=== PATIENT | female | born 1940 | race Caucasian/White ===

== ENCOUNTER → 2017-01-04 | Outpatient (CLI) | payer MEDICARE ==
[~2017-01-04] MED LIST: AMLODIPINE BESYL5 MG PO; COUMADIN5 M2 PO; GEMFIBROZIL600 MG PO; LEVOTHYROXINE0.05 MG PO; LOPID600 M1 PO; MACROBID100 M1 PO; METOPROLOL SUC100 M1 PO; TENORMIN50 MG PO; ZOCOR20 MG PO; Zestril,Prinivi40 MG PO
[2017-01-04 10:58] LABS: BILIRUBIN NEGATIVE (NEGATIVE); BLOOD NEGATIVE (NEGATIVE); CLARITY CLEAR (CLEAR); COLOR YELLOW (YELLOW); GLUCOSE NEGATIVE (NEGATIVE); KETONE NEGATIVE (NEGATIVE); LEUKO ESTERASE TRACE (NEGATIVE); NITRITE NEGATIVE (NEGATIVE); PROTEIN NEGATIVE (NEGATIVE); SPECIFIC GRAVITY 1.015 (1.005-1.030); UROBILINOGEN 0.2 E.U./dl (0.2-1.0)
[2017-01-04 11:12] LABS: BASO # 0.1 10*3/uL (0.0-0.1); BASO % 0.7 % (0.0-1.0); EOS # 0.2 10*3/uL (0.0-0.4); EOS % 3.1 % (1.0-4.0); HEMATOCRIT 40.7 % (37.0-47.0); HEMOGLOBIN 13.8 g/dl (12.0-16.0); LYMPH # 1.5 10*3/uL (1.3-4.4); LYMPH % 20.9 % (27.0-41.0); MEAN CELL VOLUME 92.5 fl (81.0-99.0); MEAN CORPUSCULAR HGB 31.4 pg (27.0-31.0); MEAN CORPUSCULAR HGB CONC 33.9 g/dl (33.0-37.0); MEAN PLATELET VOLUME 9.5 fl (9.6-12.3); MONO # 0.5 10*3/uL (0.1-1.0); MONO % 7.4 % (3.0-9.0); NEUT # 4.9 10*3/uL (2.3-7.9); NEUT % 67.5 % (47.0-73.0); PLATELET COUNT AUTOMATED 258 10*3/uL (130-400); RED CELL DISTRI WIDTH 13.1 % (0-14.5); WHITE BLOOD COUNT 7.2 10*3/uL (4.8-10.8)
[2017-01-04 11:27] LABS: ALBUMIN 3.5 gm/dl (3.1-4.5); ALKALINE PHOSPHATASE 104 U/L (45-117); BILIRUBIN, TOTAL 0.5 mg/dl (0.2-1.0); BUN 15 mg/dl (7-24); CARBON DIOXIDE 31 mmol/L (21-32); CHLORIDE 102 mmol/L (98-107); CHOLESTEROL 206 mg/dL (<200); CPK 55 U/L (26-192); EST GLOM FILT AFRICAN AMERICAN > 60 ml/min; GLUCOSE 113 mg/dL (65-99); HDL CHOLESTEROL 55 mg/dl (40-60); LDL CHOLESTEROL 116 mg/dL (9-159); POTASSIUM 4.6 mmol/L (3.5-5.1); SGOT/AST 19 IU/L (3-35); SGPT/ALT 22 U/L (12-78); SODIUM 141 mmol/L (136-145); T3 UPTAKE 37 % (31-39); THYROXINE (T4) TOTAL 8.8 ug/dl (4.8-13.9); TOTAL PROTEIN 7.5 gm/dL (6.4-8.2); TRIGLYCERIDES 176 mg/dl (<150); VLDL CHOLESTEROL 35 mg/dL (6-40)
[2017-01-04 11:32] LABS: BACTERIA TRACE; EPITHELIAL CELLS 0-2
[2017-01-04 12:20] LABS: VITAMIN D, 25-HYDROXY 34.6 ng/mL (30-100)
== END ==
LOC: LAB 10:36
PROVIDERS: Family Medicine
DX: E78.5 Hyperlipidemia, unspecified (principal); E55.9 Vitamin D deficiency, unspecified; D64.9 Anemia, unspecified; R53.83 Other fatigue; R79.89 Other specified abnormal findings of blood chemistry; R74.8 Abnormal levels of other serum enzymes

== ENCOUNTER → 2019-03-29 | Outpatient (CLI) | payer MEDICARE ==
--- NOTE | ~2019-03-29 | PF ---
[place], [place] PULMONARY FUNCTION TEST [id number] UN[facility] #: [id number] ROOM: DOCTOR: CORNELIO RAMON MD,CHRIS BIRTHDATE: [birth year] DOS: 03/29/2019 ORDERED BY: Dr. Johnston. HISTORY: The recorded as 78-year-old female, height of 63 inches, weight 190 pounds, BMI 33.7 with assessment diagnosis for shortness of breath. The patient was reported tobacco use as half a pack of cigarettes per day for 43 years. SPIROMETRY: The FVC of 2.32 liters, 91% predicted value. The FEV1 is 1.55 liters, 80% predicted value. Ratio of FEV1/FVC is 67%. Partial improvement noted in postbronchodilator testing, but not significant improvement post-bronchodilators based on the ATS criteria. Flow volume loop was assessed as well, suggestive of mild obstructive airway pattern. LUNG VOLUME: Thoracic gas volume recorded 94%, residual volume 104%, and total lung capacity of 98%. The patient's airway resistance, passive conductance noted with moderate abnormality with improvement and resolution noted with post-bronchodilator test. FINAL IMPRESSION: Current test was suggestive of diagnosis of chronic obstructive pulmonary disease and bronchial asthma would be considered, mild at this time with clinical correlation advised. CHRIS GRIMES MD CM:PFREPORT:PULMONARY FUNCTION TEST [id number] CHRIS RAMON MD
== END | disposition home or self-care (01) ==
LOC: CP 10:43
DX: R06.09 Other forms of dyspnea (principal); I10 Essential (primary) hypertension; I48.91 Unspecified atrial fibrillation

== ENCOUNTER → 2019-04-04 | Outpatient (CLI) | payer MEDICARE | END | disposition home or self-care (01) | LOC: CARD 09:19 | DX: I34.0 Nonrheumatic mitral (valve) insufficiency (principal); R06.09 Other forms of dyspnea ==

== ENCOUNTER 2019-05-24 15:27 | Inpatient (IN) | payer MEDICARE ==
[~2019-05-24] VITALS: Ht 160 cm; Wt 85.8 kg
--- NOTE | ~2019-05-24 | EKG ---
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
--- NOTE | ~2019-05-24 | PR ---
[place], [place] PROGRESS NOTE NAME: MIGUE TILLMAN UNIT #: [id number] ROOM: 507 DOCTOR: FEI MARTIN,MATTHIAS BIRTHDATE: [birth year] DOS: 05/27/2019 REASON FOR VISIT: Atrial fibrillation with rapid ventricular rate, and CHF. HISTORY OF PRESENT ILLNESS: The patient is feeling better. Her heart rate is controlled. She is less short of breath and ambulating with minimal shortness of breath. No dizziness, no orthopnea, no PND. No nausea or vomiting. No fever and chills, no cough. REVIEW OF SYSTEMS: Review of 10 systems negative except as mentioned above. PHYSICAL EXAMINATION: VITAL SIGNS: Blood pressure 140/84, pulse 83, respiratory rate was 18, weight 85 kg, BMI 33. RHYTHM STRIPS: The patient was in atrial fibrillation with controlled ventricular rate. GENERAL: Alert, comfortable, in no acute distress. HEENT: Pupils are round and equal. No jaundice. NECK: Supple, no distended neck veins. No carotid bruit. CHEST: Symmetrical, nontender. LUNGS: Clear to auscultation bilaterally. HEART: Irregularly irregular, grade 1/6 systolic murmur. ABDOMEN: Benign, nontender. EXTREMITIES: No edema. Distal pulses palpable. SKIN: Warm and dry. No cyanosis, no clubbing. RECTAL: Deferred. GENITOURINARY: Deferred. NEUROLOGIC: Alert with no focal neurologic deficit. PSYCHIATRIC: The patient is alert with good mood and affect. MUSCULOSKELETAL: No joint tenderness or swelling. MEDICATIONS AND LABORATORY DATA: Reviewed. IMPRESSION: 1. Atrial fibrillation with currently controlled ventricular rate. 2. Acute on chronic heart failure, resolved. 3. Hypertension. 4. Coronary artery disease. Today, her INR is 2.5. RECOMMENDATIONS: 1. Continue current cardiac medication. 2. Due to the persistent atrial fibrillation, MYNOR, cardioversion discussed. The patient is agreeable. 3. Keep her n.p.o., and Dr. Johnston will talk to her more about a MYNOR, cardioversion and probably she will need to go home on her Coumadin or NOACs. No family at bedside at the time of examination. [place], [place] PROGRESS NOTE NAME: MIGUE TILLMAN UNIT #: [id number] ROOM: 507 DOCTOR: MATTHIAS ENAMORADO MD BIRTHDATE: [birth year] MATTHIAS NEAMORADO MD CM:PNMATIAS [id number] MATTHIAS ENAMORADO MD 05/28/19 1202 interface
--- NOTE | ~2019-05-24 | PROC NOTE ---
[place], [place] PROCEDURE NOTE NAME: MIGUE TILLMAN [facility] #: [id number] UNIT #: [id number] ROOM: 507 DOCTOR: GUSTAVO MCCOY MD BIRTHDATE: [birth year] DOS: 05/29/2019 MYNOR-GUIDED CARDIOVERSION AGE: 78. SEX: Female. INDICATION: Paroxysmal atrial fibrillation. PROCEDURE: Elective cardioversion external, prior test anticoagulated. DESCRIPTION OF PROCEDURE: Written informed consent was obtained, the MYNOR was performed under stable condition, intracardiac thrombi were ruled out. Self-adhesive anterior, posterior defibrillation pads were applied, the defibrillator was programmed to deliver energy in a synchronized fashion with EKG. The patient was set up for monitoring of surface, EKG and pulse oximetry continuously. Blood pressure was monitored with automatic cuff measurements. Supplemental oxygen was administered. The procedure was performed under anesthesia by Anesthesiology. After ensuring adequate anesthesia, DCCV was performed by delivering 200 joules of biphasic direct current delivered in synchronized fashion. First attempt was unsuccessful. Subsequently, the patient received 200 joules of direct current in a synchronized fashion and finally converted to normal sinus rhythm with a third shock. RESULTS: Successful cardioversion to sinus rhythm and confirmed on rhythm strip. COMPLICATIONS: None. The patient was monitored until awake and vital signs remained stable. Gustavo Mccoy MD CM:PROCNOTE:PROCEDURE NOTE [id number] GUSTAVO MCCOY MD
--- NOTE | ~2019-05-24 | EKG ---
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
--- NOTE | ~2019-05-24 | EKG ---
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
--- NOTE | ~2019-05-24 | EKG ---
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
--- NOTE | ~2019-05-24 | PR ---
[place], [place] PROGRESS NOTE NAME: MIGUE TILLMAN [facility] #: [id number] UNIT #: [id number] ROOM: 507 DOCTOR: FEI MARTIN,MATTHIAS BIRTHDATE: [birth year] DOS: 05/26/2019 REASON FOR VISIT: Atrial fibrillation with rapid ventricular rate and CHF. SUBJECTIVE: The patient is feeling better, less short of breath. She is able to ambulate in the hallway with minimal shortness of breath. Her back pain is much better. Denies any chest pain or palpitation. No PND. No orthopnea. No nausea, vomiting, diarrhea. REVIEW OF SYSTEMS: Review of 10 systems negative except as mentioned above. PHYSICAL EXAMINATION: VITAL SIGNS: Blood pressure 132/80, pulse 83, respiratory rate was 18, weight 85.7 kilograms, BMI 33.5. RHYTHM STRIPS: The patient with atrial fibrillation with mostly controlled ventricular rate. GENERAL: Alert, comfortable, in no acute distress. HEAD AND NECK: Pupils round, equal. No jaundice. Tongue was moist. Pharynx clear. NECK: Supple. No distended neck veins. No carotid bruits. CHEST: Symmetrical, nontender. LUNGS: Clear to auscultation bilaterally. HEART: Irregularly irregular. No S3. No palpable thrills. ABDOMEN: Benign, nontender. Bowel sounds normal. EXTREMITIES: Showed no edema. Distal pulses palpable. SKIN: Warm and dry. No cyanosis. No clubbing. RECTAL: Deferred. GENITOURINARY: Deferred. NEUROLOGIC: Alert with no focal neurologic deficit. MUSCULOSKELETAL: No joint tenderness or swelling. PSYCHIATRIC: The patient is alert with good mood and affect. MEDICATIONS: Reviewed. LABORATORY DATA: Reviewed. INR 1.3. IMPRESSION: 1. Atrial fibrillation with rapid ventricular rate. 2. Acute on chronic heart failure with preserved ejection fraction. 3. Hypertension. 4. Left lower lobe pneumonia. 5. Chronic obstructive pulmonary disease. 6. Subtherapeutic INR. RECOMMENDATIONS: Discontinue her home Norvasc and start p.o. Cardizem 180 mg twice a day and wean her off IV Cardizem. I will give her Coumadin 10 mg today since her INR is subtherapeutic at 1.3. Long discussion with the patient regarding cardioversion on Tuesday. [place], [place] PROGRESS NOTE NAME: MIGUE TILLMAN UNIT #: [id number] ROOM: 507 DOCTOR: FEI MARTIN,MATTHIAS BIRTHDATE: [birth year] We cannot do a cardioversion since her INR is subtherapeutic; however, if she gets cardioversion, she needs to go home on NOACs, Xarelto or Eliquis at least a month after cardioversion. Continue diuretics. Monitor daily weights and outputs. No family at bedside at the time of examination. MATTHIAS ENAMORADO MD CM:PNTRANS [id number] 27 MATTHIAS ENAMORADO MD 05/26/19 1824 interface
[2019-05-24 15:43] VITALS: BP 124/74
[2019-05-24 15:50] LABS: BASO % 0.6 % (0.0-1.0); EOS # 0.1 10*3/uL (0.0-0.4); EOS % 1.8 % (1.0-4.0); HEMATOCRIT 39.4 % (37.0-47.0); HEMOGLOBIN 13.1 g/dl (12.0-16.0); LYMPH # 1.8 10*3/uL (1.3-4.4); LYMPH % 26.6 % (27.0-41.0); MEAN CORPUSCULAR HGB 32.3 pg (27.0-31.0); MEAN CORPUSCULAR HGB CONC 33.2 g/dl (33.0-37.0); MONO # 0.6 10*3/uL (0.1-1.0); MONO % 9.3 % (3.0-9.0); NEUT # 4.2 10*3/uL (2.3-7.9); NEUT % 61.4 % (47.0-73.0); PLATELET COUNT AUTOMATED 183 10*3/uL (130-400); RED BLOOD COUNT 4.06 10*6/uL (4.10-5.10); RED CELL DISTRI WIDTH 13.1 % (0-14.5); WHITE BLOOD COUNT 6.9 10*3/uL (4.8-10.8)
[2019-05-24 16:06] LABS: ALBUMIN 3.6 gm/dl (3.1-4.5); ALKALINE PHOSPHATASE 82 U/L (45-117); BUN 17 mg/dl (7-24); CHLORIDE 106 mmol/L (98-107); CREATININE 0.94 mg/dL (0.55-1.02); POTASSIUM 4.1 mmol/L (3.5-5.1); SGOT/AST 16 IU/L (3-35); SGPT/ALT 21 U/L (12-78); SODIUM 140 mmol/L (136-145); TOTAL PROTEIN 6.9 gm/dL (6.4-8.2)
[2019-05-24 16:07] LABS: TROPONIN I < 0.015 ng/ml (<0.045)
[2019-05-24 16:09] LABS: ACT PARTIAL THROMBO TIME 33.3 SECONDS (20.0-32.1); INTERNATIONAL NORM RATIO 1.9 (2.0-3.5)
[2019-05-24 16:59] VITALS: BP 130/70
[2019-05-24 20:00] VITALS: BP 161/92
[2019-05-24 21:30] VITALS: BP 161/92
[2019-05-25] VITALS (7 sets, daily range): BP systolic 100–143; BP diastolic 71–93
[2019-05-25 06:15] LABS: BASO % 0.3 % (0.0-1.0); HEMATOCRIT 40.1 % (37.0-47.0); HEMOGLOBIN 13.9 g/dl (12.0-16.0); LYMPH # 0.8 10*3/uL (1.3-4.4); LYMPH % 11.4 % (27.0-41.0); MEAN CORPUSCULAR HGB 32.4 pg (27.0-31.0); MEAN CORPUSCULAR HGB CONC 34.7 g/dl (33.0-37.0); MEAN PLATELET VOLUME 10.3 fl (9.6-12.3); MONO # 0.1 10*3/uL (0.1-1.0); MONO % 1.2 % (3.0-9.0); NEUT # 5.9 10*3/uL (2.3-7.9); NEUT % 86.8 % (47.0-73.0); PLATELET COUNT AUTOMATED 179 10*3/uL (130-400); RED BLOOD COUNT 4.29 10*6/uL (4.10-5.10); RED CELL DISTRI WIDTH 12.9 % (0-14.5); WHITE BLOOD COUNT 6.7 10*3/uL (4.8-10.8)
[2019-05-25 06:24] LABS: MEAN CELL VOLUME 93.5 fl (81.0-99.0)
[2019-05-25 06:46] LABS: ALBUMIN 3.6 gm/dl (3.1-4.5); BUN 16 mg/dl (7-24); CHLORIDE 104 mmol/L (98-107); CHOLESTEROL 160 mg/dL (<200); CREATININE 0.94 mg/dL (0.55-1.02); PHOSPHOROUS 2.3 mg/dL (2.5-4.9); POTASSIUM 3.8 mmol/L (3.5-5.1); SGOT/AST 17 IU/L (3-35); SGPT/ALT 21 U/L (12-78); SODIUM 137 mmol/L (136-145); TOTAL PROTEIN 7.5 gm/dL (6.4-8.2); TRIGLYCERIDES 101 mg/dl (<150); VLDL CHOLESTEROL 20 mg/dL (6-40)
[2019-05-25 06:53] LABS: ALKALINE PHOSPHATASE 86 U/L (45-117); HDL CHOLESTEROL 47 mg/dl (40-60); LDL CHOLESTEROL 93 mg/dL (9-159)
[2019-05-25 06:58] LABS: ACT PARTIAL THROMBO TIME 31.4 SECONDS (20.0-32.1); INTERNATIONAL NORM RATIO 1.6 (2.0-3.5)
[2019-05-26] VITALS (11 sets, daily range): BP systolic 108–136; BP diastolic 48–86
[2019-05-26 06:42] LABS: ALKALINE PHOSPHATASE 82 U/L (45-117); BUN 24 mg/dl (7-24); CHLORIDE 99 mmol/L (98-107); CREATININE 1.03 mg/dL (0.55-1.02); POTASSIUM 3.4 mmol/L (3.5-5.1); SGOT/AST 13 IU/L (3-35); SGPT/ALT 18 U/L (12-78); SODIUM 136 mmol/L (136-145); TOTAL PROTEIN 7.7 gm/dL (6.4-8.2)
[2019-05-26 06:58] LABS: INTERNATIONAL NORM RATIO 1.3 (2.0-3.5)
[2019-05-27] VITALS: BP 116/45
[2019-05-27 07:05] LABS: CREATININE 1.14 mg/dL (0.55-1.02); POTASSIUM 3.6 mmol/L (3.5-5.1)
[2019-05-27 07:22] LABS: INTERNATIONAL NORM RATIO 2.5 (2.0-3.5)
[2019-05-27 08:45] VITALS: BP 142/82
[2019-05-27 12:00] VITALS: BP 142/86
[2019-05-27 16:00] VITALS: BP 128/52
[2019-05-27 20:00] VITALS: BP 144/65
[2019-05-28] VITALS: BP 125/74
[2019-05-28 07:08] LABS: BUN 36 mg/dl (7-24); CHLORIDE 100 mmol/L (98-107); CREATININE 1.05 mg/dL (0.55-1.02); POTASSIUM 3.6 mmol/L (3.5-5.1); SODIUM 137 mmol/L (136-145)
[2019-05-28 07:10] LABS: INTERNATIONAL NORM RATIO 4.5 (2.0-3.5)
[2019-05-28 10:41] VITALS: BP 120/82
[2019-05-28 12:00] VITALS: BP 128/76
[2019-05-28 16:00] VITALS: BP 120/67
[2019-05-28 20:00] VITALS: BP 114/50
[2019-05-29] VITALS (7 sets, daily range): BP systolic 110–130; BP diastolic 50–78
[2019-05-29 07:31] LABS: BUN 33 mg/dl (7-24); CHLORIDE 101 mmol/L (98-107); POTASSIUM 3.8 mmol/L (3.5-5.1); SODIUM 136 mmol/L (136-145)
[2019-05-29 07:32] LABS: CREATININE 0.98 mg/dL (0.55-1.02)
[2019-05-29 07:41] LABS: INTERNATIONAL NORM RATIO 3.2 (2.0-3.5)
[2019-05-29] MEDS ORDERED: ELIQUIS5 M1 PO (14:47)
== END 2019-05-29 16:29 | disposition home health service (06) | DRG 291 ==
LOC: ED 15:27 → 5E 19:37 → EDHOLD 19:37 → 5E 20:44
PROVIDERS: Emergency Medicine; Family Medicine; Internal Medicine; ADMIT Internal Medicine
PROC: B24BZZ4 Ultrasonography of Heart with Aorta, Transesophageal (ICD-10-PCS; principal; 2019-05-29)
PROC: 5A2204Z Restoration of Cardiac Rhythm, Single (ICD-10-PCS; principal; 2019-05-29)
DX: I11.0 Hypertensive heart disease with heart failure (principal); J18.1 Lobar pneumonia, unspecified organism; J44.1 Chronic obstructive pulmonary disease with (acute) exacerbation; J44.0 Chronic obstructive pulmonary disease with (acute) lower respiratory infection; I50.33 Acute on chronic diastolic (congestive) heart failure; M19.90 Unspecified osteoarthritis, unspecified site; I25.10 Atherosclerotic heart disease of native coronary artery without angina pectoris; I48.91 Unspecified atrial fibrillation; I08.1 Rheumatic disorders of both mitral and tricuspid valves; G89.29 Other chronic pain; M54.9 Dorsalgia, unspecified; G43.909 Migraine, unspecified, not intractable, without status migrainosus; E83.41 Hypermagnesemia; R79.1 Abnormal coagulation profile; E78.2 Mixed hyperlipidemia; E03.9 Hypothyroidism, unspecified; F17.220 Nicotine dependence, chewing tobacco, uncomplicated; Z71.6 Tobacco abuse counseling; Z88.5 Allergy status to narcotic agent; Z98.51 Tubal ligation status; Z79.01 Long term (current) use of anticoagulants; Z82.49 Family history of ischemic heart disease and other diseases of the circulatory system; Z80.8 Family history of malignant neoplasm of other organs or systems; Z79.899 Other long term (current) drug therapy; Z79.890 Hormone replacement therapy

== ENCOUNTER → 2019-06-13 | Outpatient (CLI) | payer MEDICARE ==
[~2019-06-13] MED LIST changes: +ELIQUIS5 M1 PO
[2019-06-13 15:14] LABS: BILIRUBIN NEGATIVE (NEGATIVE); BLOOD TRACE-INTACT (NEGATIVE); CLARITY SL CLOUDY (CLEAR); COLOR YELLOW (YELLOW); GLUCOSE NEGATIVE (NEGATIVE); KETONE TRACE (NEGATIVE); LEUKO ESTERASE NEGATIVE (NEGATIVE); NITRITE NEGATIVE (NEGATIVE); SPECIFIC GRAVITY 1.015 (1.005-1.030); UROBILINOGEN 0.2 E.U./dl (0.2-1.0)
[2019-06-13 15:30] LABS: BACTERIA TRACE; EPITHELIAL CELLS 0-2; RBC 0-2 rbc/hpf (0-2)
== END | disposition home or self-care (01) ==
LOC: RESCLI 02:19
PROVIDERS: Hospitalist
DX: E78.2 Mixed hyperlipidemia (principal); R30.0 Dysuria; I48.91 Unspecified atrial fibrillation; J44.9 Chronic obstructive pulmonary disease, unspecified; E03.9 Hypothyroidism, unspecified; M25.511 Pain in right shoulder; M25.512 Pain in left shoulder; L03.011 Cellulitis of right finger; I11.0 Hypertensive heart disease with heart failure; I50.9 Heart failure, unspecified; Z79.899 Other long term (current) drug therapy

== ENCOUNTER → 2019-07-18 | Outpatient (CLI) | payer MEDICARE | END | disposition home or self-care (01) | LOC: RESCLI 02:05 | DX: I11.0 Hypertensive heart disease with heart failure (principal); I50.20 Unspecified systolic (congestive) heart failure; G54.2 Cervical root disorders, not elsewhere classified; M25.511 Pain in right shoulder; M54.5 Low back pain; E78.2 Mixed hyperlipidemia; J44.9 Chronic obstructive pulmonary disease, unspecified; E03.9 Hypothyroidism, unspecified; I48.91 Unspecified atrial fibrillation; E78.5 Hyperlipidemia, unspecified; Z79.899 Other long term (current) drug therapy ==

== ENCOUNTER → 2019-07-25 | Outpatient (CLI) | payer MEDICARE | END | disposition home or self-care (01) | LOC: MRI 12:51 | DX: M19.011 Primary osteoarthritis, right shoulder (principal); M75.51 Bursitis of right shoulder; I10 Essential (primary) hypertension; I48.91 Unspecified atrial fibrillation ==

== ENCOUNTER → 2019-08-01 | Outpatient (CLI) | payer MEDICARE | END | disposition home or self-care (01) | LOC: MRI 12:57 | DX: M47.812 Spondylosis without myelopathy or radiculopathy, cervical region (principal); M48.07 Spinal stenosis, lumbosacral region ==

== ENCOUNTER → 2019-08-24 | Outpatient (CLI) | payer MEDICARE | END | disposition home or self-care (01) | LOC: RESCLI 00:22 | DX: Z13.820 Encounter for screening for osteoporosis (principal); I11.0 Hypertensive heart disease with heart failure; I50.9 Heart failure, unspecified; E78.2 Mixed hyperlipidemia; I48.91 Unspecified atrial fibrillation; J44.9 Chronic obstructive pulmonary disease, unspecified; E03.9 Hypothyroidism, unspecified; M51.26 Other intervertebral disc displacement, lumbar region; M19.011 Primary osteoarthritis, right shoulder; Z79.899 Other long term (current) drug therapy; Z88.8 Allergy status to other drugs, medicaments and biological substances ==

== ENCOUNTER → 2019-09-03 | Outpatient (CLI) | payer OTHER, MEDICARE | END | disposition home or self-care (01) | LOC: RAD 10:06 | DX: Z13.820 Encounter for screening for osteoporosis (principal); M85.88 Other specified disorders of bone density and structure, other site; E55.9 Vitamin D deficiency, unspecified; E03.9 Hypothyroidism, unspecified; Z87.891 Personal history of nicotine dependence; I50.9 Heart failure, unspecified; Z78.0 Asymptomatic menopausal state ==

== ENCOUNTER → 2020-02-11 | Outpatient (CLI) | payer OTHER, MEDICARE | END | disposition home or self-care (01) | LOC: RESCLI 03:56 | DX: I11.0 Hypertensive heart disease with heart failure (principal); I50.20 Unspecified systolic (congestive) heart failure; J44.9 Chronic obstructive pulmonary disease, unspecified; M85.89 Other specified disorders of bone density and structure, multiple sites; E03.9 Hypothyroidism, unspecified; I48.91 Unspecified atrial fibrillation; M54.5 Low back pain; M19.011 Primary osteoarthritis, right shoulder; E78.2 Mixed hyperlipidemia; F17.220 Nicotine dependence, chewing tobacco, uncomplicated; Z98.51 Tubal ligation status; Z98.890 Other specified postprocedural states; Z88.5 Allergy status to narcotic agent; Z79.899 Other long term (current) drug therapy ==

== ENCOUNTER 2020-04-02 14:56 | Inpatient (IN) | payer OTHER ==
[~2020-04-02] VITALS: Ht 160 cm; Wt 86.0 kg
[2020-04-02 15:01] VITALS: BP 144/82
[2020-04-02 15:18] LABS: BASO % 0.4 % (0.0-1.0); EOS # 0.1 10*3/uL (0.0-0.4); EOS % 1.8 % (1.0-4.0); HEMATOCRIT 38.4 % (37.0-47.0); LYMPH # 1.5 10*3/uL (1.3-4.4); LYMPH % 21.8 % (27.0-41.0); MEAN CELL VOLUME 96.7 fl (81.0-99.0); MEAN CORPUSCULAR HGB 31.2 pg (27.0-31.0); MEAN CORPUSCULAR HGB CONC 32.3 g/dl (33.0-37.0); MEAN PLATELET VOLUME 10.5 fl (9.6-12.3); MONO # 0.6 10*3/uL (0.1-1.0); MONO % 9.5 % (3.0-9.0); NEUT # 4.4 10*3/uL (2.3-7.9); NEUT % 66.2 % (47.0-73.0); PLATELET COUNT AUTOMATED 192 10*3/uL (130-400); RED BLOOD COUNT 3.97 10*6/uL (4.10-5.10); RED CELL DISTRI WIDTH 12.8 % (0-14.5); WHITE BLOOD COUNT 6.7 10*3/uL (4.8-10.8)
[2020-04-02 15:28] LABS: ACT PARTIAL THROMBO TIME 33.7 SECONDS (20.0-32.1); INTERNATIONAL NORM RATIO 1.2 (2.0-3.5)
[2020-04-02 15:34] LABS: ALBUMIN 3.7 gm/dl (3.1-4.5); ALKALINE PHOSPHATASE 84 U/L (45-117); BUN 14 mg/dl (7-24); CHLORIDE 107 mmol/L (98-107); CREATININE 0.88 mg/dL (0.55-1.02); SGOT/AST 18 IU/L (3-35); SGPT/ALT 22 U/L (12-78); SODIUM 138 mmol/L (136-145); TOTAL PROTEIN 7.2 gm/dL (6.4-8.2)
[2020-04-02 15:35] LABS: TROPONIN I < 0.015 ng/ml (<0.045)
[2020-04-02 18:48] VITALS: BP 150/80
--- NOTE | 2020-04-02 19:00 | NUR ---
ASSUMED CARE FOR THIS PT AT THIS TIME. PT AWAKE IN BED WATCHING TV. BOXED LUNCH AND FLUIDS GIVEN TO PT PER REQUEST. CALL LIGHT IN REACH.
--- NOTE | 2020-04-02 19:36 | NUR ---
A 79, admitted to , under the services of PAULINO Larios DO with a diagnosis of PNEUMONIA. DYSPNEA. Chief complaint is SHORTNESS OF BREATH. Patient arrived via bed from ER. Monitor applied. Initial assessment completed. Vital signs taken and recorded. PAULINO LARIOS DO notified of admission to the unit. Orders received. See assessment for past medical history, medications and allergies. Patient and/or family oriented to unit. [address] visitation policy reviewed. Clothing/patient valuable form completed. SKIN WDI. NO OPEN AREAS. AYUSH IVAN
--- NOTE | 2020-04-02 19:54 | NUR ---
NEW PT CONSULT CALLED INTO DR GRIMES.
--- NOTE | 2020-04-02 19:58 | NUR ---
NEW PT CONSULT CALLED INTO ANSWERING SERVICE FOR DR MANN.
--- NOTE | 2020-04-02 20:02 | NUR ---
NEW PT CONSULT CALLED INTO ANSWERING SERVICE FOR DR MCCOY.
[2020-04-03] VITALS: BP 134/83
[2020-04-03 06:01] LABS: BASO % 0.4 % (0.0-1.0); EOS # 0.1 10*3/uL (0.0-0.4); EOS % 1.8 % (1.0-4.0); HEMATOCRIT 34.3 % (37.0-47.0); LYMPH # 1.4 10*3/uL (1.3-4.4); MEAN CELL VOLUME 95.3 fl (81.0-99.0); MEAN CORPUSCULAR HGB 31.9 pg (27.0-31.0); MEAN CORPUSCULAR HGB CONC 33.5 g/dl (33.0-37.0); MONO # 0.6 10*3/uL (0.1-1.0); MONO % 10.7 % (3.0-9.0); NEUT # 3.3 10*3/uL (2.3-7.9); NEUT % 60.9 % (47.0-73.0); PLATELET COUNT AUTOMATED 157 10*3/uL (130-400); RED CELL DISTRI WIDTH 12.7 % (0-14.5); WHITE BLOOD COUNT 5.5 10*3/uL (4.8-10.8)
[2020-04-03 06:20] LABS: ACT PARTIAL THROMBO TIME 29.9 SECONDS (20.0-32.1); INTERNATIONAL NORM RATIO 1.1 (2.0-3.5)
[2020-04-03 06:23] LABS: ALBUMIN 3.3 gm/dl (3.1-4.5); ALKALINE PHOSPHATASE 75 U/L (45-117); BUN 15 mg/dl (7-24); CHLORIDE 105 mmol/L (98-107); CHOLESTEROL 134 mg/dL (<200); CREATININE 0.85 mg/dL (0.55-1.02); HDL CHOLESTEROL 39 mg/dl (40-60); LDH 160 U/L (84-246); LDL CHOLESTEROL 69 mg/dL (9-159); POTASSIUM 3.1 mmol/L (3.5-5.1); SGOT/AST 16 IU/L (3-35); SGPT/ALT 19 U/L (12-78); SODIUM 139 mmol/L (136-145); TOTAL PROTEIN 6.4 gm/dL (6.4-8.2); TRIGLYCERIDES 132 mg/dl (<150); VLDL CHOLESTEROL 26 mg/dL (6-40)
[2020-04-03 06:30] LABS: FREE T4 1.13 ng/dl (0.76-1.46)
[2020-04-03 08:00] VITALS: BP 118/82
--- NOTE | 2020-04-03 08:00 | NUR ---
PATIENT RESTING IN BED. VOICES NO CONCERNS AT THIS TIME. STATES SOB IS IMPROVING AND DOES NOT FEEL THE NEED FOR OXYGEN AT THIS TIME. POX 97% ON RA. RESPS EASY AND REGULAR. ASSESSMENT COMPLETE. DENIES ANY CHEST PAIN. CALL LIGHT WITHIN REACH.
--- NOTE | 2020-04-03 09:00 | NUR ---
National Account Representative in to talk to patient. Patient states lives at home with alone. There are no steps in the home. Physician: [facility]acy[facility] [place] [facility]: no Patient's level of ADLs: INDEPENDENT Patient has working utilities: all working DME: none Follow-up physician's appointment after d/c: will be amde by hospitalist nurse director upon discharge Does patient want to access PORTAL?: no Discharge plan discussed with patient, she states he lives at home, is independent in adls and ambulation, she states she will return home when discharged and denies any home needs, case management will follow. NIKOLAS BARNETT
[2020-04-03 09:13] LABS: FERRITIN 74.8 ng/mL (10.0-291.0); VITAMIN D, 25-HYDROXY 45.3 ng/mL (30-100)
--- NOTE | 2020-04-03 10:00 | NUR ---
PER [facility] PATIENT HAS NOT GOT ANYTHING FILLED THERE SINCE 2019.
--- NOTE | 2020-04-03 10:02 | NUR ---
CARDIZEM DRIP STARTED AT THIS TIME. PER DR. MCCOY GIVE 10 MG IV BOLUS AND THEN START AT 5MG/HR AND PUT IN TITRATE ORDER. BP 132/71 WHEN CARDIZEM DRIP STARTED.
[2020-04-03 12:00] VITALS: BP 132/71
--- NOTE | 2020-04-03 12:00 | NUR ---
CARDIZEM DRIP INFUSING. BP 127/78. HR 112 PER CM.
[2020-04-03] MEDS ORDERED: NEURONTIN300 MG PO (12:37)
[2020-04-03] MEDS ORDERED: XARELTO20 M1 PO (12:37)
[2020-04-03] MEDS ORDERED: NEURONTIN100 MG PO (12:38)
[2020-04-03] MEDS ORDERED: SPIRIVA 5 CAPS18 MCG INH (12:38)
[2020-04-03] MEDS ORDERED: DULOXETINE HCL20 MG PO (12:39)
--- NOTE | 2020-04-03 12:59 | NUR ---
UPDATED [facility] REC TO THE BEST OF MY ABILITY. NOTIFIED. PATIENT STILL STATES THAT SHE TAKES A BP MED AND A CHOLESTEROL MED UNSURE WHAT MEDS THOSE ARE THOUGH AND NO RECORD OF THIS IN PATIENTS MED CLAIM. WILL CONTINUE TO TRY TO FIGURE OUT PATIENTS MEDS.
--- NOTE | 2020-04-03 14:00 | NUR ---
HR ANYWHERE FROM LOW 100S TO 140S. CARDIZEM DRIP INCREASED TO 10 MG/HR AT THIS TIME. BP 139/76. WILL MONITOR.
[2020-04-03] MEDS ORDERED: LISINOPRIL40 MG PO (15:31)
[2020-04-03] MEDS ORDERED: ZOCOR40 MG PO (15:32)
[2020-04-03] MEDS ORDERED: TOPROL XL100 MG PO (15:32)
[2020-04-03] MEDS ORDERED: GEMFIBROZIL600 MG PO (15:33)
[2020-04-03] MEDS ORDERED: UNITHROID25 MCG PO ×2 (15:34→15:36)
--- NOTE | 2020-04-03 15:38 | NUR ---
PATIENT GAVE ME A LIST OF MEDS THAT SHE HAD GOT FILLED FROM AND STATES THAT SHE TAKES ALL OF THESE MEDS. UPDATED MED REC TO MATCH WHAT PATIENT GAVE ME. NOTIFIED AND STATED HE WOULD TAKE A LOOK AT IT.
--- NOTE | 2020-04-03 15:45 | NUR ---
SPOKE WITH FAMILY AND UPDATED ON PATIENT.
[2020-04-03 16:00] VITALS: BP 146/50
--- NOTE | 2020-04-03 19:00 | NUR ---
ASSUMED CARE FOR THIS PT AT THIS TIME. PT AWAKE IN BED WATCHING TV. NO C/O VOICED. CARDIZEM GTT INFUSING AT 10ML/HR. HR REMAINS IN 110-120'S. PT STATES NEVES HAS IMPROVED. CALL LIGHT IN REACH.
[2020-04-03 20:00] VITALS: BP 149/67
--- NOTE | 2020-04-03 20:36 | NUR ---
CARDIZEM GTT INCREASED TO 15ML/HR AT THIS TIME D/T HR MAINTAINING IN 110'S. PT AWAKE IN BED WATCHING TV. NO C/O PAIN VOICED. CALL LIGHT IN REACH.
[2020-04-04] VITALS: BP 137/57
--- NOTE | 2020-04-04 | NUR ---
PT RESTING QUEITLY IN BED. NO S/S OF DISTRESS NOTED ON CAMERA. CALL LIGHT IN REACH.
--- NOTE | 2020-04-04 03:00 | NUR ---
HR SUSTAINING IN 80'S. CARDIZEM TITRATED TO 10ML/HR AT THIS TIME.
--- NOTE | 2020-04-04 05:13 | NUR ---
24 HR chart check completed.
[2020-04-04 06:15] LABS: BASO % 0.4 % (0.0-1.0); EOS # 0.1 10*3/uL (0.0-0.4); EOS % 2.5 % (1.0-4.0); HEMATOCRIT 36.1 % (37.0-47.0); LYMPH # 1.6 10*3/uL (1.3-4.4); LYMPH % 30.7 % (27.0-41.0); MEAN CELL VOLUME 95.3 fl (81.0-99.0); MEAN CORPUSCULAR HGB 31.9 pg (27.0-31.0); MEAN CORPUSCULAR HGB CONC 33.5 g/dl (33.0-37.0); MEAN PLATELET VOLUME 10.2 fl (9.6-12.3); MONO # 0.5 10*3/uL (0.1-1.0); MONO % 10.4 % (3.0-9.0); NEUT # 2.9 10*3/uL (2.3-7.9); NEUT % 55.8 % (47.0-73.0); PLATELET COUNT AUTOMATED 166 10*3/uL (130-400); RED BLOOD COUNT 3.79 10*6/uL (4.10-5.10); WHITE BLOOD COUNT 5.1 10*3/uL (4.8-10.8)
[2020-04-04 06:31] LABS: ALBUMIN 3.4 gm/dl (3.1-4.5); ALKALINE PHOSPHATASE 78 U/L (45-117); BUN 15 mg/dl (7-24); CHLORIDE 105 mmol/L (98-107); CREATININE 0.81 mg/dL (0.55-1.02); POTASSIUM 3.5 mmol/L (3.5-5.1); SGOT/AST 18 IU/L (3-35); SGPT/ALT 23 U/L (12-78); SODIUM 139 mmol/L (136-145); TOTAL PROTEIN 6.7 gm/dL (6.4-8.2)
[2020-04-04 06:44] LABS: INTERNATIONAL NORM RATIO 1.4 (2.0-3.5)
[2020-04-04 08:00] VITALS: BP 128/84
[2020-04-04 10:00] VITALS: BP 1125/74
[2020-04-04 12:00] VITALS: BP 126/69
[2020-04-04 16:00] VITALS: BP 137/90
--- NOTE | 2020-04-04 19:00 | NUR ---
ASSUMED CARE FOR THIS PT AT THIS TIME. PT AWAKE IN BED. PT C/O CONSTIPATION. BS X4 HYPO. PT STATES DYSPNEA HAS GREATLY IMPROVED. CALL LIGHT IN REACH.
[2020-04-04 20:00] VITALS: BP 137/68
--- NOTE | 2020-04-04 21:18 | NUR ---
PT MEDICATED W/DULCOLAX FOR CONSTIPATION. PT ENCOURAGED TO INCREASE FLUID INTAKE. PT AGREEABLE. CALL LIGHT IN REACH.
--- NOTE | 2020-04-04 23:21 | NUR ---
PT C/O INABILITY TO FALL ASLEEP. MEDICATED W/RESTORIL PO. LIGHTS TURNED OFF AND DOOR SHUT. CALL LIGHT IN REACH.
[2020-04-05] VITALS: BP 153/67
--- NOTE | 2020-04-05 00:21 | NUR ---
PT RESTING QUIETLY IN BED W/EYES CLOSED. PRN RESTORIL EFFECTIVE.
[2020-04-05 08:00] VITALS: BP 124/56
--- NOTE | 2020-04-05 08:30 | NUR ---
Patient resting quietly with no c/o discomfort. Respirations easy and regular. Vital signs stable. No overt distress. MECCA GRANADOS R
[2020-04-05] MEDS ORDERED: LASIX40 MG PO (11:45)
[2020-04-05 12:00] VITALS: BP 106/62
[2020-04-05 16:00] VITALS: BP 113/65
--- NOTE | 2020-04-05 17:30 | NUR ---
Discharge instructions reviewed with patient/family. Patient receptive and verbalizes understanding. Follow-up care arranged. Written instructions given to patient/family. MECCA GRANADOS
== END 2020-04-05 18:12 | disposition home or self-care (01) | DRG 291 ==
LOC: ED 14:56 → 4E 18:05 → EDHOLD 18:05 → 4E 18:07
PROVIDERS: Emergency Medicine; Hospitalist; ADMIT Internal Medicine
DX: I11.0 Hypertensive heart disease with heart failure (principal); J18.9 Pneumonia, unspecified organism; J44.0 Chronic obstructive pulmonary disease with (acute) lower respiratory infection; D68.9 Coagulation defect, unspecified; I48.0 Paroxysmal atrial fibrillation; I50.33 Acute on chronic diastolic (congestive) heart failure; E78.2 Mixed hyperlipidemia; E03.9 Hypothyroidism, unspecified; G89.29 Other chronic pain; M54.9 Dorsalgia, unspecified; G43.909 Migraine, unspecified, not intractable, without status migrainosus; D64.9 Anemia, unspecified; E87.6 Hypokalemia; R73.9 Hyperglycemia, unspecified; I34.0 Nonrheumatic mitral (valve) insufficiency; M19.90 Unspecified osteoarthritis, unspecified site; Z20.828 Contact with and (suspected) exposure to other viral communicable diseases; Z98.51 Tubal ligation status; Z87.891 Personal history of nicotine dependence; Z82.49 Family history of ischemic heart disease and other diseases of the circulatory system; Z83.6 Family history of other diseases of the respiratory system; Z80.8 Family history of malignant neoplasm of other organs or systems; Z79.01 Long term (current) use of anticoagulants; Z79.899 Other long term (current) drug therapy; Z88.5 Allergy status to narcotic agent; G47.33 Obstructive sleep apnea (adult) (pediatric); E78.00 Pure hypercholesterolemia, unspecified

== ENCOUNTER → 2020-04-07 | Outpatient (CLI) | payer OTHER ==
[~2020-04-07] MED LIST changes: +DULOXETINE HCL20 MG PO; +LASIX40 MG PO; +LISINOPRIL40 MG PO; +NEURONTIN100 MG PO; +NEURONTIN300 MG PO; +SPIRIVA 5 CAPS18 MCG INH; +TOPROL XL100 MG PO; +UNITHROID25 MCG PO; +XARELTO20 M1 PO; +ZOCOR40 MG PO
[2020-04-07 11:14] LABS: CREATININE 1.26 mg/dL (0.55-1.02); POTASSIUM 4.1 mmol/L (3.5-5.1)
== END | disposition home or self-care (01) ==
LOC: LAB 10:03
PROVIDERS: Student in an Organized Health Care Education/Training Program
DX: I48.91 Unspecified atrial fibrillation (principal)

== ENCOUNTER → 2020-04-25 | Outpatient (CLI) | payer OTHER ==
[2020-04-25 12:54] LABS: BUN 21 mg/dl (7-24); CHLORIDE 106 mmol/L (98-107); CREATININE 1.02 mg/dL (0.55-1.02); POTASSIUM 3.8 mmol/L (3.5-5.1); SODIUM 142 mmol/L (136-145)
== END | disposition home or self-care (01) ==
LOC: RESCLI 01:11
PROVIDERS: Internal Medicine; ATTEND Emergency Medicine
DX: J44.9 Chronic obstructive pulmonary disease, unspecified (principal); G54.2 Cervical root disorders, not elsewhere classified; E78.2 Mixed hyperlipidemia; M85.89 Other specified disorders of bone density and structure, multiple sites; E03.9 Hypothyroidism, unspecified; I48.91 Unspecified atrial fibrillation; I10 Essential (primary) hypertension; I11.0 Hypertensive heart disease with heart failure; I50.20 Unspecified systolic (congestive) heart failure; M54.9 Dorsalgia, unspecified; Z79.899 Other long term (current) drug therapy; Z98.51 Tubal ligation status; Z88.8 Allergy status to other drugs, medicaments and biological substances

== ENCOUNTER → 2020-05-28 | Outpatient (CLI) | payer OTHER ==
[~2020-05-28] MED LIST changes: +DILTIAZEM60 MG PO; +POTASSIUM CHLO10 ME5 PO
== END | disposition home or self-care (01) ==
LOC: COVID19 10:30
PROVIDERS: ATTEND Internal Medicine Cardiovascular Disease
DX: Z20.828 Contact with and (suspected) exposure to other viral communicable diseases (principal); I48.19 Other persistent atrial fibrillation

== ENCOUNTER → 2020-05-28 | Outpatient (CLI) | payer OTHER ==
[~2020-05-28] MED LIST changes: +TOPROL XL50 M1 PO
== END | disposition home or self-care (01) ==
LOC: RESCLI 04:03
PROVIDERS: ATTEND Student in an Organized Health Care Education/Training Program
DX: I10 Essential (primary) hypertension (principal); M85.89 Other specified disorders of bone density and structure, multiple sites; J44.9 Chronic obstructive pulmonary disease, unspecified; G54.2 Cervical root disorders, not elsewhere classified; E78.2 Mixed hyperlipidemia; E03.9 Hypothyroidism, unspecified; I48.91 Unspecified atrial fibrillation; I11.0 Hypertensive heart disease with heart failure; I50.20 Unspecified systolic (congestive) heart failure; Z79.899 Other long term (current) drug therapy; Z98.890 Other specified postprocedural states

== ENCOUNTER → 2020-06-02 | Day surgery (SDC) | payer OTHER | END | disposition home or self-care (01) | LOC: SDC 05-30 14:45 | PROVIDERS: ATTEND Internal Medicine Cardiovascular Disease | DX: I48.19 Other persistent atrial fibrillation (principal); M51.36 Other intervertebral disc degeneration, lumbar region; M50.30 Other cervical disc degeneration, unspecified cervical region; I13.0 Hypertensive heart and chronic kidney disease with heart failure and stage 1 through stage 4 chronic kidney disease, or unspecified chronic kidney disease; N18.9 Chronic kidney disease, unspecified; I50.9 Heart failure, unspecified; G47.30 Sleep apnea, unspecified; M19.90 Unspecified osteoarthritis, unspecified site; Z87.891 Personal history of nicotine dependence; Z88.5 Allergy status to narcotic agent; Z79.899 Other long term (current) drug therapy; Z98.890 Other specified postprocedural states; Z88.8 Allergy status to other drugs, medicaments and biological substances ==

== ENCOUNTER → 2020-11-21 | Outpatient (CLI) | payer OTHER | END | disposition home or self-care (01) | LOC: RESCLI 00:31 | PROVIDERS: ATTEND Internal Medicine | DX: M85.89 Other specified disorders of bone density and structure, multiple sites (principal); I11.0 Hypertensive heart disease with heart failure; I50.20 Unspecified systolic (congestive) heart failure; I48.91 Unspecified atrial fibrillation; E03.9 Hypothyroidism, unspecified; E78.2 Mixed hyperlipidemia; J44.9 Chronic obstructive pulmonary disease, unspecified; G45.2 Multiple and bilateral precerebral artery syndromes; Z79.899 Other long term (current) drug therapy; Z88.5 Allergy status to narcotic agent ==

== ENCOUNTER → 2021-01-12 | Outpatient (CLI) | payer OTHER ==
[2021-01-12 10:57] LABS: BASO # 0.1 10*3/uL (0.0-0.1); BASO % 0.7 % (0.0-1.0); EOS # 0.2 10*3/uL (0.0-0.4); EOS % 3.1 % (1.0-4.0); HEMATOCRIT 39.4 % (37.0-47.0); LYMPH # 1.7 10*3/uL (1.3-4.4); LYMPH % 24.6 % (27.0-41.0); MEAN CELL VOLUME 95.9 fl (81.0-99.0); MEAN CORPUSCULAR HGB 32.4 pg (27.0-31.0); MEAN CORPUSCULAR HGB CONC 33.8 g/dl (33.0-37.0); MEAN PLATELET VOLUME 10.2 fl (9.6-12.3); MONO # 0.7 10*3/uL (0.1-1.0); MONO % 9.7 % (3.0-9.0); NEUT # 4.1 10*3/uL (2.3-7.9); NEUT % 61.5 % (47.0-73.0); PLATELET COUNT AUTOMATED 257 10*3/uL (130-400); RED BLOOD COUNT 4.11 10*6/uL (4.10-5.10); RED CELL DISTRI WIDTH 12.5 % (0-14.5); WHITE BLOOD COUNT 6.7 10*3/uL (4.8-10.8)
[2021-01-12 11:23] LABS: CREATININE 1.3 mg/dL (0.55-1.02); POTASSIUM 3.9 mmol/L (3.5-5.1)
[2021-01-12 11:29] LABS: THYROID STIM HORMONE (HS) 4.18 uIU/ml (0.358-4.75)
== END | disposition home or self-care (01) ==
LOC: LAB 10:00
PROVIDERS: Internal Medicine; ATTEND Internal Medicine
DX: I11.0 Hypertensive heart disease with heart failure (principal); I50.9 Heart failure, unspecified; E78.2 Mixed hyperlipidemia; J44.9 Chronic obstructive pulmonary disease, unspecified

== ENCOUNTER → 2021-01-22 | Outpatient (CLI) | payer OTHER | END | disposition home or self-care (01) | LOC: RESCLI 01:32 | PROVIDERS: ATTEND Internal Medicine | DX: M47.817 Spondylosis without myelopathy or radiculopathy, lumbosacral region (principal); M47.816 Spondylosis without myelopathy or radiculopathy, lumbar region; M51.36 Other intervertebral disc degeneration, lumbar region; M48.061 Spinal stenosis, lumbar region without neurogenic claudication; M17.11 Unilateral primary osteoarthritis, right knee; M41.86 Other forms of scoliosis, lumbar region; M25.851 Other specified joint disorders, right hip; G95.89 Other specified diseases of spinal cord; E03.9 Hypothyroidism, unspecified; E78.2 Mixed hyperlipidemia; Z79.899 Other long term (current) drug therapy; Z72.0 Tobacco use ==

== ENCOUNTER → 2021-02-18 | Outpatient (CLI) | payer OTHER | END | disposition home or self-care (01) | LOC: MRI 00:29 | PROVIDERS: ATTEND Orthopaedic Surgery | DX: M16.11 Unilateral primary osteoarthritis, right hip (principal); M25.451 Effusion, right hip; R60.0 Localized edema ==

== ENCOUNTER → 2021-03-19 | Day surgery (SDC) | payer OTHER ==
[2021-03-19 07:11] VITALS: BP 151/83
[2021-03-19 07:29] VITALS: BP 125/71
[2021-03-19 07:45] VITALS: BP 129/77
[2021-03-19 07:50] VITALS: BP 134/80
== END | disposition home or self-care (01) ==
LOC: SDC 03-16 10:15 → COVID19 03-16 14:25 → SDC 01:43 → COVID19 01:43 → SDC 08:30 → COVID19 10:15
PROVIDERS: ATTEND Orthopaedic Surgery
DX: M16.11 Unilateral primary osteoarthritis, right hip (principal); I10 Essential (primary) hypertension; I48.91 Unspecified atrial fibrillation; I50.9 Heart failure, unspecified; J44.9 Chronic obstructive pulmonary disease, unspecified; E03.9 Hypothyroidism, unspecified; Z20.822 Contact with and (suspected) exposure to COVID-19

== ENCOUNTER → 2021-05-14 | Outpatient (CLI) | payer OTHER ==
[2021-05-14 13:25] LABS: BILIRUBIN Negative (Negative); BLOOD Negative (Negative); CLARITY Clear (Clear); COLOR Yellow (Yellow); GLUCOSE Negative (Negative); KETONE Negative (Negative); LEUKO ESTERASE 2+ (Negative); NITRITE Negative (Negative)
[2021-05-14 13:38] LABS: BACTERIA TRACE; WBC TNTC wbc/hpf (0-5)
[2021-05-14 14:11] LABS: BUN 20 mg/dl (7-24); CHLORIDE 105 mmol/L (98-107); CREATININE 0.94 mg/dL (0.55-1.02); SODIUM 138 mmol/L (136-145)
== END | disposition home or self-care (01) ==
LOC: LAB 13:02
PROVIDERS: Social Worker Clinical; ATTEND Internal Medicine
DX: R35.8 Other polyuria (principal); I50.9 Heart failure, unspecified

== ENCOUNTER → 2021-06-04 | Outpatient (CLI) | payer OTHER | END | disposition home or self-care (01) | LOC: RESCLI 01:12 | PROVIDERS: ATTEND Internal Medicine | DX: I48.91 Unspecified atrial fibrillation (principal); I10 Essential (primary) hypertension; M85.89 Other specified disorders of bone density and structure, multiple sites; J44.9 Chronic obstructive pulmonary disease, unspecified; E78.2 Mixed hyperlipidemia; I50.9 Heart failure, unspecified; M79.671 Pain in right foot; R94.31 Abnormal electrocardiogram [ECG] [EKG]; Z79.899 Other long term (current) drug therapy ==

== ENCOUNTER → 2021-06-08 | Outpatient (CLI) | payer OTHER | END | disposition home or self-care (01) | LOC: RAD 14:40 → EDSTATUS 14:40 | PROVIDERS: ATTEND Internal Medicine Nephrology | DX: M19.071 Primary osteoarthritis, right ankle and foot (principal) ==

== ENCOUNTER → 2021-06-19 | Outpatient (CLI) | payer OTHER | END | disposition home or self-care (01) | LOC: RESCLI 00:19 | PROVIDERS: ATTEND Internal Medicine | DX: I48.91 Unspecified atrial fibrillation (principal); I11.0 Hypertensive heart disease with heart failure; I50.9 Heart failure, unspecified; E78.2 Mixed hyperlipidemia; J44.9 Chronic obstructive pulmonary disease, unspecified; M85.89 Other specified disorders of bone density and structure, multiple sites; Z79.899 Other long term (current) drug therapy ==

== ENCOUNTER → 2021-10-29 | Outpatient (CLI) | payer MEDICARE | END | disposition home or self-care (01) | LOC: RESCLI 13:54 | PROVIDERS: ATTEND Internal Medicine | DX: I11.0 Hypertensive heart disease with heart failure (principal); I50.9 Heart failure, unspecified; M85.89 Other specified disorders of bone density and structure, multiple sites; J44.9 Chronic obstructive pulmonary disease, unspecified; E03.9 Hypothyroidism, unspecified; R60.0 Localized edema; I48.91 Unspecified atrial fibrillation; E78.2 Mixed hyperlipidemia; Z87.891 Personal history of nicotine dependence; Z88.0 Allergy status to penicillin; Z79.899 Other long term (current) drug therapy ==

== ENCOUNTER → 2021-11-24 | Outpatient (CLI) | payer MEDICARE ==
[2021-11-24 11:37] LABS: BASO # 0.1 10*3/uL (0.0-0.1); BASO % 0.9 % (0.0-1.0); EOS # 0.1 10*3/uL (0.0-0.4); EOS % 1.3 % (1.0-4.0); HEMATOCRIT 41.4 % (37.0-47.0); LYMPH % 28.1 % (27.0-41.0); MEAN CELL VOLUME 94.1 fl (81.0-99.0); MEAN CORPUSCULAR HGB 32.7 pg (27.0-31.0); MEAN CORPUSCULAR HGB CONC 34.8 g/dl (33.0-37.0); MEAN PLATELET VOLUME 9.8 fl (9.6-12.3); MONO # 0.6 10*3/uL (0.1-1.0); MONO % 7.9 % (3.0-9.0); NEUT # 4.3 10*3/uL (2.3-7.9); NEUT % 61.5 % (47.0-73.0); PLATELET COUNT AUTOMATED 191 10*3/uL (130-400); RED CELL DISTRI WIDTH 12.8 % (0-14.5)
[2021-11-24 11:58] LABS: ALKALINE PHOSPHATASE 90 U/L (45-117); BUN 18 mg/dl (7-24); CHLORIDE 104 mmol/L (98-107); CHOLESTEROL 165 mg/dL (<200); CREATININE 0.95 mg/dL (0.55-1.02); LDL CHOLESTEROL 81 mg/dL (9-159); POTASSIUM 4.1 mmol/L (3.5-5.1); SGOT/AST 19 IU/L (3-35); SGPT/ALT 25 U/L (12-78); SODIUM 142 mmol/L (136-145); TOTAL PROTEIN 7.2 gm/dL (6.4-8.2); TRIGLYCERIDES 160 mg/dl (<150)
== END | disposition home or self-care (01) ==
LOC: LAB 11:09
PROVIDERS: Internal Medicine; ATTEND Student in an Organized Health Care Education/Training Program
DX: I11.0 Hypertensive heart disease with heart failure (principal); M85.89 Other specified disorders of bone density and structure, multiple sites; I48.91 Unspecified atrial fibrillation; I50.9 Heart failure, unspecified

== ENCOUNTER → 2021-11-26 | Outpatient (CLI) | payer MEDICARE | END | disposition home or self-care (01) | LOC: CARD 00:29 | PROVIDERS: ATTEND Internal Medicine | DX: I08.1 Rheumatic disorders of both mitral and tricuspid valves (principal); I50.9 Heart failure, unspecified ==

== ENCOUNTER → 2022-02-10 | Outpatient (CLI) | payer MEDICARE | END | disposition home or self-care (01) | LOC: RESCLI 01:30 | PROVIDERS: ATTEND Internal Medicine | DX: M85.89 Other specified disorders of bone density and structure, multiple sites (principal); E03.9 Hypothyroidism, unspecified; I48.91 Unspecified atrial fibrillation; I11.0 Hypertensive heart disease with heart failure; M54.50 Low back pain, unspecified; M19.011 Primary osteoarthritis, right shoulder; J44.9 Chronic obstructive pulmonary disease, unspecified; E78.2 Mixed hyperlipidemia; I50.32 Chronic diastolic (congestive) heart failure; G56.02 Carpal tunnel syndrome, left upper limb; Z79.899 Other long term (current) drug therapy; Z88.8 Allergy status to other drugs, medicaments and biological substances; Z79.01 Long term (current) use of anticoagulants ==

== ENCOUNTER → 2022-07-14 | Outpatient (CLI) | payer MEDICARE | END | disposition home or self-care (01) | LOC: RESCLI 00:33 | PROVIDERS: ATTEND Internal Medicine | DX: I11.0 Hypertensive heart disease with heart failure (principal); I50.9 Heart failure, unspecified; H93.13 Tinnitus, bilateral; M54.50 Low back pain, unspecified; D22.9 Melanocytic nevi, unspecified; I48.91 Unspecified atrial fibrillation; E03.9 Hypothyroidism, unspecified; E78.5 Hyperlipidemia, unspecified; M19.90 Unspecified osteoarthritis, unspecified site; Z88.5 Allergy status to narcotic agent; Z87.891 Personal history of nicotine dependence; Z82.49 Family history of ischemic heart disease and other diseases of the circulatory system; Z98.890 Other specified postprocedural states; Z79.01 Long term (current) use of anticoagulants; Z79.899 Other long term (current) drug therapy ==

== ENCOUNTER 2022-08-02 15:56 | Emergency (ER) | payer MEDICARE ==
[~2022-08-02] VITALS: Wt 81.6 kg
[2022-08-02] MEDS ORDERED: TRAMADOL HCL50 MG PO (21:55)
== END 2022-08-02 22:01 | disposition home or self-care (01) ==
LOC: ED 15:56
DX: S40.011A Contusion of right shoulder, initial encounter (principal); S09.90XA Unspecified injury of head, initial encounter; M25.511 Pain in right shoulder; Z88.8 Allergy status to other drugs, medicaments and biological substances; Z79.899 Other long term (current) drug therapy; Z98.51 Tubal ligation status; Z87.891 Personal history of nicotine dependence; W18.39XA Other fall on same level, initial encounter; Y93.89 Activity, other specified; Y92.89 Other specified places as the place of occurrence of the external cause; Y99.8 Other external cause status

== ENCOUNTER → 2022-08-10 | Outpatient (CLI) | payer OTHER ==
[~2022-08-10] MED LIST changes: +TRAMADOL HCL50 MG PO
== END | disposition home or self-care (01) ==
LOC: RESCLI 15:06
PROVIDERS: ATTEND Internal Medicine
DX: M25.511 Pain in right shoulder (principal); M85.89 Other specified disorders of bone density and structure, multiple sites; Z13.820 Encounter for screening for osteoporosis; I48.91 Unspecified atrial fibrillation; E78.2 Mixed hyperlipidemia; I11.0 Hypertensive heart disease with heart failure; I50.32 Chronic diastolic (congestive) heart failure; J44.9 Chronic obstructive pulmonary disease, unspecified; E03.9 Hypothyroidism, unspecified; Z87.39 Personal history of other diseases of the musculoskeletal system and connective tissue; Z79.899 Other long term (current) drug therapy; Z79.01 Long term (current) use of anticoagulants; Z88.8 Allergy status to other drugs, medicaments and biological substances

== ENCOUNTER → 2022-09-03 | Outpatient (CLI) | payer OTHER | END | disposition home or self-care (01) | LOC: RAD 09:30 → MRI 10:00 → LAB 10:03 | PROVIDERS: ATTEND Internal Medicine | DX: Z01.818 Encounter for other preprocedural examination (principal); S41.011A Laceration without foreign body of right shoulder, initial encounter; S40.011A Contusion of right shoulder, initial encounter; M19.011 Primary osteoarthritis, right shoulder; M75.111 Incomplete rotator cuff tear or rupture of right shoulder, not specified as traumatic; X58.XXXA Exposure to other specified factors, initial encounter; Y93.89 Activity, other specified; Y92.89 Other specified places as the place of occurrence of the external cause; Y99.8 Other external cause status ==

== ENCOUNTER → 2022-09-08 | Outpatient (CLI) | payer OTHER | END | disposition home or self-care (01) | LOC: RAD 09-03 09:30 | PROVIDERS: ATTEND Family Medicine | DX: Z13.820 Encounter for screening for osteoporosis (principal); M85.852 Other specified disorders of bone density and structure, left thigh ==

== ENCOUNTER → 2022-11-10 | Outpatient (CLI) | payer OTHER | END | disposition home or self-care (01) | LOC: RESCLI 10:55 | PROVIDERS: ATTEND Student in an Organized Health Care Education/Training Program | DX: J44.9 Chronic obstructive pulmonary disease, unspecified (principal); M85.89 Other specified disorders of bone density and structure, multiple sites; E78.2 Mixed hyperlipidemia; I48.91 Unspecified atrial fibrillation; I11.0 Hypertensive heart disease with heart failure; I50.32 Chronic diastolic (congestive) heart failure; G89.29 Other chronic pain; M54.9 Dorsalgia, unspecified; E03.9 Hypothyroidism, unspecified; F17.220 Nicotine dependence, chewing tobacco, uncomplicated; Z79.899 Other long term (current) drug therapy; Z98.890 Other specified postprocedural states; Z82.49 Family history of ischemic heart disease and other diseases of the circulatory system; Z80.8 Family history of malignant neoplasm of other organs or systems; Z88.5 Allergy status to narcotic agent ==

== ENCOUNTER → 2022-12-10 | Outpatient (CLI) | payer OTHER ==
[2022-12-10 11:54] LABS: BASO % 0.6 % (0.0-1.0); EOS # 0.1 10*3/uL (0.0-0.4); HEMATOCRIT 42.2 % (37.0-47.0); LYMPH # 1.6 10*3/uL (1.3-4.4); LYMPH % 30.2 % (27.0-41.0); MEAN CELL VOLUME 92.5 fl (81.0-99.0); MEAN CORPUSCULAR HGB CONC 34.6 g/dl (33.0-37.0); MEAN PLATELET VOLUME 9.9 fl (9.6-12.3); MONO # 0.5 10*3/uL (0.1-1.0); MONO % 9.2 % (3.0-9.0); NEUT # 3.2 10*3/uL (2.3-7.9); PLATELET COUNT AUTOMATED 196 10*3/uL (130-400); RED BLOOD COUNT 4.56 10*6/uL (4.10-5.10); RED CELL DISTRI WIDTH 12.2 % (0-14.5); WHITE BLOOD COUNT 5.4 10*3/uL (4.8-10.8)
[2022-12-10 12:23] LABS: ALKALINE PHOSPHATASE 79 U/L (46-116); BUN 17 mg/dl (9-23); CHLORIDE 105 mmol/L (98-107); CHOLESTEROL 157 mg/dL (<200); LDL CHOLESTEROL 88 mg/dL (9-159); POTASSIUM 4.1 mmol/L (3.4-5.1); SGPT/ALT 16 U/L (10-49); THYROID STIM HORMONE (HS) 3.609 uIU/ml (0.550-4.780); TOTAL PROTEIN 6.6 gm/dL (6.0-8.0); TRIGLYCERIDES 149 mg/dl (<150)
== END | disposition home or self-care (01) ==
LOC: LAB 11:30
PROVIDERS: ATTEND Internal Medicine
DX: I10 Essential (primary) hypertension (principal); E78.2 Mixed hyperlipidemia; I48.91 Unspecified atrial fibrillation; M85.89 Other specified disorders of bone density and structure, multiple sites; Z79.899 Other long term (current) drug therapy

== ENCOUNTER → 2023-05-11 | Outpatient (CLI) | payer OTHER | END | disposition home or self-care (01) | LOC: RESCLI 13:10 | PROVIDERS: ATTEND Student in an Organized Health Care Education/Training Program | DX: J44.9 Chronic obstructive pulmonary disease, unspecified (principal); I48.91 Unspecified atrial fibrillation; E78.2 Mixed hyperlipidemia; I11.0 Hypertensive heart disease with heart failure; I50.20 Unspecified systolic (congestive) heart failure; M81.0 Age-related osteoporosis without current pathological fracture; Z88.5 Allergy status to narcotic agent; Z82.49 Family history of ischemic heart disease and other diseases of the circulatory system; Z98.890 Other specified postprocedural states; Z87.891 Personal history of nicotine dependence; Z79.899 Other long term (current) drug therapy ==

== ENCOUNTER → 2023-09-01 | Outpatient (CLI) | payer MEDICARE | END | disposition home or self-care (01) | LOC: CP 00:26 | PROVIDERS: ATTEND Internal Medicine | DX: J44.9 Chronic obstructive pulmonary disease, unspecified (principal) ==

== ENCOUNTER → 2023-12-01 | Outpatient (CLI) | payer MEDICARE | END | disposition home or self-care (01) | LOC: RESCLI 02:33 | PROVIDERS: ATTEND Student in an Organized Health Care Education/Training Program | DX: M81.0 Age-related osteoporosis without current pathological fracture (principal); I48.91 Unspecified atrial fibrillation; J44.9 Chronic obstructive pulmonary disease, unspecified; I11.0 Hypertensive heart disease with heart failure; I50.20 Unspecified systolic (congestive) heart failure; E78.2 Mixed hyperlipidemia; Z79.899 Other long term (current) drug therapy; Z79.01 Long term (current) use of anticoagulants; Z79.02 Long term (current) use of antithrombotics/antiplatelets; Z88.8 Allergy status to other drugs, medicaments and biological substances ==

== ENCOUNTER → 2024-06-04 | Outpatient (CLI) | payer MEDICARE | END | disposition home or self-care (01) | LOC: RESCLI 02:00 | PROVIDERS: ATTEND Internal Medicine | DX: I11.0 Hypertensive heart disease with heart failure (principal); I50.20 Unspecified systolic (congestive) heart failure; E03.9 Hypothyroidism, unspecified; E78.2 Mixed hyperlipidemia; I48.91 Unspecified atrial fibrillation; M81.0 Age-related osteoporosis without current pathological fracture; Z79.899 Other long term (current) drug therapy; Z98.890 Other specified postprocedural states; Z88.5 Allergy status to narcotic agent ==